=== PATIENT | male | born 2000 | race Caucasian/White ===

== ENCOUNTER 2022-03-09 20:17 | Inpatient (IN) | payer BC, SELFPAY ==
[2022-03-09] MEDS: cloNIDine HCL 0.1 MG TABLET PO (22:55)
[2022-03-09] MEDS: traZODone HCL 100 MG TABLET PO (22:56)
[2022-03-09] MEDS: hydrOXYzine HCL 50 MG TABLET PO (22:56)
[2022-03-09] MEDS: Acetaminophen 325 MG TABLET 650 MG PO (22:58)
[2022-03-10 00:08] VITALS: BMI 20.4
--- NOTE | 2022-03-10 00:10 | PC.ADMIT ---
A single, white, Wolof-speaking male aged 22 years was admitted to the [facility] at 2034 as a CV following referral from [facility] ED and [facility] crisis. Pt reports a number of IPLOC since age 16 years, but is unknown to staff on M5. Pt presented to [facility] ED via SPD and EMS on 03/06/22 following sending a text to his mother that he was going to hang himself. Police reported pt attempted to hang self in a tree with two belts and was suspended in the air. Police drove cruiser beneath, climbed on top of cruiser and supported pt until EMS arrived. Pt has stated I don't hear voices but the demons was torturing me and I had a meltdown and ran. I ran to a random house and in the back was a tree so I climbed up and tied two belts around my neck and jumped . Pt had also stated that people on the street told him to kill himself. Pt had come to [place] from [place] with a friend while the friend had an appointment. Pt denied AH/VH in [facility] assessment and in admission assessment. In [facility] assessment pt's mother said he knows not to say he is hearing voices also stating pt has a history of not being medication compliant. Pt had attended a program in [facility] and had stepped down to an IOP sober house although pt does not have an alcohol or substance abuse problem staff there have stated. Pt is welcome to return to his IOP placement. Pt denied to this promotion writer that he has schizoaffective d/o, bipolar type; pt stated he experiences panic and anxiety. Pt was focused on Klonopin upon arrival, saying it was prescribed to him. Pt stated that Xanax and ativan are also helpful. Pt stated that risperdal and zyprexa are not helpful meds; pt believes has ADR to zyprexa, but is a poor historian. Pt denies pain, reports anxiety 8/10 and depression 2/10. Pt stated he was glad he survived the attempted hanging. Pt denied current SI and stated he can come to staff for help if needed. Pt has a history of cutting left wrist as form of self harm, with last it occurring in June. Pt denied current urges to self harm. Pt denies alcohol or substance use. Pt was calm and cooperative during admission. Pt has no providers at this time. Pt denies medical issues. [id number] and treatment plan done and admission orders obtained. Pt placed on 15 minute safety checks and is resting in room at this time.
[2022-03-10 06:00] VITALS: BP 122/58; PULSE 88; RESP 14; O2SAT 97
[2022-03-10] MEDS: Omeprazole 20 MG CAPSULE.DR PO (06:51)
[2022-03-10] MEDS: Nicotine 21 MG PATCH.TD24 TRANSDERMA (08:40)
[2022-03-10] MEDS: Acetaminophen 325 MG TABLET 650 MG PO (08:41)
[2022-03-10] MEDS: cloNIDine HCL 0.1 MG TABLET PO (08:42)
[2022-03-10] MEDS: hydrOXYzine HCL 50 MG TABLET PO (08:42)
[2022-03-10 09:22] LABS: Cholesterol 161 mg/dL; HDL Cholesterol 44 mg/dL; LDL Cholesterol Calculated 108 mg/dl; Triglycerides 49 mg/dL
--- NOTE | 2022-03-10 10:30 | HO.PSYADMNOT ---
HPI Date of Service: 03/10/22 Chief Complaint: SI, suicide attempt Sources of Information: patient interviewed, chart reviewed and crisis/core team assessment reviewed HPI Subjective Notes: [place] Warning and Conditional Voluntary Narrative: Patient is a 22-year-old male with history of Schizoaffective disorder, past psychiatric hospitalizations, who presents after suicide attempt by hanging in the face of unmedicated psychotic disorder. Patient has had several psychiatric hospitalizations and 1 past suicide attempt however he does not think that he is psychotic and has not taken antipsychotic medications other than for a few weeks. Patient says that he came up from [place] to attend [facility] in [place].. However He denies any drug or alcohol abuse at all and says he came here for mental health reasons; he does say that he was prescribed clonazepam 1 mg b.i.d. for a year has not been on it for the past year and denies buying it or taking it since then; still he offers this as a possible reason he is at a recovery center. Patient said that he was doing really well at the program, going to groups and active. He said he was switched down to a [facility] since he was doing well. He said that all the sudden something was telling him to kill himself. He said he screamed out to the universe that he wants to kill himself and heard nothing back. Because of this he decided to kill himself. It is unclear the exact timeline but at some point he texted his mother and sisters that he was going to hang himself. Police found him with a noose around his neck under a tree and as police approached he released himself and was in fact hanging; police were able to quickly get him down (CTA done and negative). Patient at [facility] denies auditory hallucinations but as he talks more, it is clear that he has auditory hallucinations. He said at the recovery center he could hear staff saying she's fucking in different intonations. Patient expressed paranoid delusions that his family, friends, everyone he has known, and strangers are writing negative derogatory things about him on the Internet. He can not explain it but he knows the things he is reading are about him. He says that he thinks that there is this big joke that everyone is in on that he is a dad without kids... a burden and that people pity him. While talking with journalists and other writers, patient responded to an auditory hallucinations and acknowledged as much, saying he heard them say she's fucking; looking off to side he answered out loud, looking off to the side I know. . . I do not care. Patient says he feels talked in her asked. Patient is ambivalent about medications, he lists several antipsychotics that he is taking that he did not find helpful or had a negative reaction to which he qualifies as anxiety or tension. He is very focused on getting back clonazepam. He agrees however to start on Haldol. Patient denies any manic type history or symptoms. He endorses history of bouts of depression; denies trauma Currently denies SI Past Psychiatric History: Anxiety since adolescents Hospitalized at 17 for suicide attempt Hospitalized a few other times, and reports last hospitalization October 2021, but is not sure. Patient was [facility] for breaking into his sister's apartment Medication trials: Risperdal: 1 month; says it caused tension and anxiety Zyprexa: 2 weeks; says a caused tension and anxiety Abilify: 2 weeks; says it caused tension and anxiety [place]: For about a month. He says this seem to help stabilize him a little but overall was not that effective Cymbalta: About a year Zoloft: About a month Clonazepam 1 mg b.i.d. for a year or so. 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 [place]; intermittent psychiatric hospitalizations Patient has been homeless for some periods Patient came up to [facility] to go to [facility] though he denies any substance abuse at all Substance History: Denies any history of substance abuse Trauma History: Denies Diagnostics Vital Signs (24Hr): Vital Signs - 24 hr 03/10/22 06:00 Pulse Rate 88 Respiratory Rate 14 Blood Pressure 122/58 L Pulse Oximetry 88 L BMI result Body Mass Index 20.4 Labs Labs: Laboratory Results - last 48 hr 03/10/22 08:20 Triglycerides 49 Cholesterol 161 LDL Cholesterol, Calc 108 HDL Cholesterol 44 Meds/Allergies Meds Home Medications Acetaminophen (Acetaminophen 325 Mg Tablet) 650 mg PO Q6H PRN PRN Reason: Headache/Pain Mild Scale (1-3) Last Admin: 03/10/22 08:41 Dose: 650 mg Documented by: Al Hydroxide/Mg Hydroxide (Magnesium Hydrox/Alum Hydrox 30 Ml Oral.Susp) 30 ml PO Q6H PRN PRN Reason: Heartburn/Nausea Clonazepam (Clonazepam 0.5 Mg Tablet) 0.5 mg PO BID [facility] Clonidine HCl (Clonidine Hcl 0.1 Mg Tablet) 0.1 mg PO TID PRN; Protocol PRN Reason: anxiety, hyperarousal Last Admin: 03/10/22 08:42 Dose: 0.1 mg Documented by: Haloperidol (Haloperidol 5 Mg Tablet) 5 mg PO BID [facility] Hydroxyzine HCl (Hydroxyzine Hcl 50 Mg Tablet) 50 mg PO TID PRN PRN Reason: Anxiety Last Admin: 03/10/22 08:42 Dose: 50 mg Documented by: Ibuprofen (Ibuprofen 400 Mg Tablet) 400 mg PO Q6H PRN PRN Reason: mod pain Magnesium Hydroxide (Milk Of Magnesia 30 Ml Oral.Susp) 30 ml PO DAILY PRN PRN Reason: Constipation Nicotine (Nicotine 21 Mg Patch.Td24) 21 mg TRANSDERMA DAILY [facility] Last Admin: 03/10/22 08:40 Dose: 21 mg Documented by: Nicotine Polacrilex (Nicotine Polacrilex 2 Mg Gum) 2 mg BUCCAL Q2H PRN PRN Reason: Nicotine Cravings Omeprazole (Omeprazole 20 Mg Capsule.) 20 mg PO DAILY@0630 [facility] Last Admin: 03/10/22 06:51 Dose: 20 mg Documented by: Trazodone HCl (Trazodone Hcl 100 Mg Tablet) 100 mg PO BEDTIME [facility] Last Admin: 03/09/22 22:56 Dose: 100 mg Documented by: Allergies Allergies Allergy/AdvReac Type Severity Reaction Status Date / Time No Known Allergies Allergy Verified 03/10/22 14:38 Assessment & Plan Assessment & Plan (1) Schizoaffective disorder, depressive type: Status: Acute Code(s): F25.1 - Schizoaffective disorder, depressive type Plan Patient is a 22-year-old male with history of Schizoaffective disorder,, past psychiatric hospitalizations, who presents after suicide attempt by hanging in the face of unmedicated psychotic disorder. Patient has history of non adherence with medication other than clonazepam. Patient has insight to know that he is struggling with depressive feelings and anxiety, however does not have any insight in to his psychotic illness. That said he is willing to take Haldol provided he also gets clonazepam to which journalists and other writers agrees Will need collateral regarding substance abuse history Currently denies SI PLAN: CV Q 15 minute checks Haldol 5 mg b.i.d. (Titrate as needed) Clonazepam 0.5 mg b.i.d. Patient wants 1 mg b.i.d. however agrees to start here. While journalists and other writers understands that this is controlled substance, patient does have extreme anxiety provoked by psychotic illness. He also made a serious suicide attempt and needs his psychotic illness treated with medication and its journalists and other writers's opinion that the benefits here outweigh the risks. That said, journalists and other writers explained clearly to patient that clonazepam will not be prescribed as monotherapy and that patient needs medications from other categories, antipsychotic/mood stabilizers in order to treat his illness. Patient educated on: diagnosis and medication risk/benefits Informed Consent: understands Reason for continued inpatient stay Substantial Risk for: harm to self and rapid decompensation
--- NOTE | 2022-03-10 13:33 | HO.PM.IMCN ---
History of Present Illness Data of Consult Service Date: 03/10/22 Primary Care Provider: Unknown Physician HPI 22-year-old male with no significant past medical history who is presently admitted to inpatient psych unit for management of depression. He has no acute medical issues at the moment Review of Systems Review of Systems: Gen: no fever Resp: no sob, no cough CV: no chest, no CANCINO, no leg edema GI: No n/v, no abd pain Neuro: No confusion Psych no si Yes all other systems are reviewed and are negative [facility] Medical History (Updated 03/10/22 @ 13:44 by David Marte MD) Depression Social History Household Members: Other Household Members Other:: Pt in respite sober house with 5 others. Housing: House Do you presently have visiting nurse or other home services: No Patient Tobacco Use Status: Current everyday Tobacco user Tobacco use type: Smokeless Tobacco Smoked in Last 30 Days: Yes e-Cigarette/Vaping Use: Currently Using Frequency of e-Cigarette/Vaping Use: 12 times daily Patient Interested in Nicotine Replacement: Yes Patient Given Instructions on How to Stop Smoking: Yes Date Education Initiated: 03/09/22 Second Hand Smoke Exposure: No Use of substances other than those prescribed or required for medical reasons: No Currently Displaying Signs/Symptoms of Drug Intoxication Withdrawal: No Any prior treatment program specific to substance use: No Have you been hit, kicked, punched, or otherwise hurt by someone within the past year? If so, by whom?: No Do you feel safe in your current relationship?: No Current Relationship Is there a partner from a previous relationship who is making you feel unsafe now?: No Are you made to feel afraid or neglected: No Spiritual Healthcare Practices: None Druze Healthcare Practices: None Cultural Healthcare Practices: None Advance Directives: No Advance Directives Information Provided: No Advance Directives on File: No Do you have thoughts of harming others: None Do you have a plan to hurt others: No Plan Recently lost weight without trying: No Eating poorly because of decreased appetite: Yes Nutrition Risks: No Nutritional Risk Poor oral hygiene: Yes Meds Allergies Allergy/AdvReac Type Severity Reaction Status Date / Time risperidone [From Risperdal] AdvReac Unknown Unknown Verified 03/09/22 21:57 Active Medications: Current Medications Acetaminophen (Acetaminophen 325 Mg Tablet) 650 mg PO Q6H PRN PRN Reason: Headache/Pain Mild Scale (1-3) Last Admin: 03/10/22 08:41 Dose: 650 mg Documented by: Al Hydroxide/Mg Hydroxide (Magnesium Hydrox/Alum Hydrox 30 Ml Oral.Susp) 30 ml PO Q6H PRN PRN Reason: Heartburn/Nausea Clonidine HCl (Clonidine Hcl 0.1 Mg Tablet) 0.1 mg PO TID PRN; Protocol PRN Reason: anxiety, hyperarousal Last Admin: 03/10/22 08:42 Dose: 0.1 mg Documented by: Hydroxyzine HCl (Hydroxyzine Hcl 50 Mg Tablet) 50 mg PO TID PRN PRN Reason: Anxiety Last Admin: 03/10/22 08:42 Dose: 50 mg Documented by: Ibuprofen (Ibuprofen 400 Mg Tablet) 400 mg PO Q6H PRN PRN Reason: mod pain Magnesium Hydroxide (Milk Of Magnesia 30 Ml Oral.Susp) 30 ml PO DAILY PRN PRN Reason: Constipation Nicotine (Nicotine 21 Mg Patch.Td24) 21 mg TRANSDERMA DAILY [facility] Last Admin: 03/10/22 08:40 Dose: 21 mg Documented by: Nicotine Polacrilex (Nicotine Polacrilex 2 Mg Gum) 2 mg BUCCAL Q2H PRN PRN Reason: Nicotine Cravings Olanzapine (Olanzapine 5 Mg Tablet) 5 mg PO TID PRN PRN Reason: agitation, anxiety Omeprazole (Omeprazole 20 Mg Capsule.Dr) 20 mg PO DAILY@0630 [facility] Last Admin: 03/10/22 06:51 Dose: 20 mg Documented by: Trazodone HCl (Trazodone Hcl 100 Mg Tablet) 100 mg PO BEDTIME [facility] Last Admin: 03/09/22 22:56 Dose: 100 mg Documented by: Physical Exam Vital Signs and Narrative: Vital Signs: Last Vital Signs Pulse 88 03/10/22 06:00 Resp 14 03/10/22 06:00 BP 122/58 L 03/10/22 06:00 Pulse Ox 97 03/10/22 06:00 BMI result Body Mass Index 20.4 Const: Other: General: AO X 3, no acute distress Resp: CTA bilateral CVS: S1,S2,RRR GI: +BS, NT, no distention Skin: No rash Neuro: motor grossly intact, CN 2 to 12 intact Psych: appropriate affect Results Labs Labs: Laboratory Results - last 24 hr 03/10/22 08:20 Triglycerides 49 Cholesterol 161 LDL Cholesterol, Calc 108 HDL Cholesterol 44 Assessment and Plan (1) Depression: Status: Acute Plan 22/m male being managed for depression and anxiety with no acute medical issues at this time. Plan: continue present care, please call with any acute medical issues
[2022-03-10] MEDS: HaloperidoL 5 MG TABLET PO ×2 (14:57→20:45)
[2022-03-10] MEDS: clonazePAM 0.5 MG TABLET PO ×2 (14:58→20:45)
[2022-03-10 18:00] VITALS: BP 122/76; PULSE 98; RESP 16; TEMP 36.6; O2SAT 98
[2022-03-10] MEDS: traZODone HCL 100 MG TABLET PO (20:45)
[2022-03-11 06:00] VITALS: BP 118/64; PULSE 86; RESP 16; TEMP 36.7; O2SAT 98
[2022-03-11] MEDS: Omeprazole 20 MG CAPSULE.DR PO (06:14)
[2022-03-11] MEDS: HaloperidoL 5 MG TABLET PO ×2 (08:49→20:33)
[2022-03-11] MEDS: Nicotine 21 MG PATCH.TD24 TRANSDERMA (08:49)
[2022-03-11] MEDS: clonazePAM 0.5 MG TABLET PO (08:49)
--- NOTE | 2022-03-11 10:46 | HO.PSYCHPN ---
Subjective Subjective Date of Service: 03/11/22 Reason For Visit: SI, suicide attempt Subjective Notes: Conditional Voluntary Interim History: Pt reports passive suicidal ideation. He reports he wouldn't mind dying but denies any plan or intent to hurt himself. He appears internally preoccupied. He reports feeling anxious, asks if clonazepam can be increased. He is on haldol as well. Per nursing, pt visible in the unit, social with select peers. No behavioral concerns. Medication Compliance: Yes Side effects from medications: No Attending Groups: Intermittent Review of Systems Review of Systems Gen: no fever Resp: no sob, no cough CV: no chest, no CANCINO, no leg edema GI: No n/v, no abd pain Neuro: No confusion Psych no si Yes all other systems are reviewed and are negative Mental Status Exam Mental Status Exam Narrative: Appearance: thin casually groomed, fair hygiene in NAD Behavior:poor eye contact, cooperative psychomotor:no agitation or retardation noted Speech: clear, normal rate/rhythm/volume, spontaneous- monotone Thought process:mostly linear Thought content:guarded, internally preoccupied but not fully forthcoming. Mood: depressed, anxious Affect: constricted SI:passive HI:none VH/AH:internally preoccupied. Delusions:persecutory delusions Insight/judgment:impaired x 2. Memory/cog: alert, oriented x 3. Diagnostics Vital Signs (24Hr): Vital Signs - 24 hr 03/12/22 14:54 03/12/22 19:10 03/13/22 06:00 Temperature 98.7 F 98.0 F Pulse Rate 91 77 96 Respiratory Rate 18 16 Blood Pressure 129/79 120/66 126/74 Pulse Oximetry 98 98 BMI result Body Mass Index 20.4 Medications Medications Current Medications Acetaminophen (Acetaminophen 325 Mg Tablet) 650 mg PO Q6H PRN PRN Reason: Headache/Pain Mild Scale (1-3) Last Admin: 03/12/22 21:03 Dose: 650 mg Documented by: Al Hydroxide/Mg Hydroxide (Magnesium Hydrox/Alum Hydrox 30 Ml Oral.Susp) 30 ml PO Q6H PRN PRN Reason: Heartburn/Nausea Clonazepam (Clonazepam 1 Mg Tablet) 1 mg PO BID [facility] Last Admin: 03/13/22 08:24 Dose: 1 mg Documented by: Clonidine HCl (Clonidine Hcl 0.1 Mg Tablet) 0.1 mg PO TID PRN; Protocol PRN Reason: anxiety, hyperarousal Last Admin: 03/12/22 14:56 Dose: 0.1 mg Documented by: Haloperidol (Haloperidol 5 Mg Tablet) 5 mg PO BID [facility] Last Admin: 03/13/22 08:24 Dose: 5 mg Documented by: Hydroxyzine HCl (Hydroxyzine Hcl 50 Mg Tablet) 50 mg PO TID PRN PRN Reason: Anxiety Last Admin: 03/12/22 14:57 Dose: 50 mg Documented by: Ibuprofen (Ibuprofen 400 Mg Tablet) 400 mg PO Q6H PRN PRN Reason: mod pain Magnesium Hydroxide (Milk Of Magnesia 30 Ml Oral.Susp) 30 ml PO DAILY PRN PRN Reason: Constipation Nicotine (Nicotine 21 Mg Patch.Td24) 21 mg TRANSDERMA DAILY [facility] Last Admin: 03/13/22 08:24 Dose: 21 mg Documented by: Nicotine Polacrilex (Nicotine Polacrilex 2 Mg Gum) 4 mg BUCCAL Q2H PRN PRN Reason: Nicotine Cravings Last Admin: 03/12/22 21:06 Dose: 4 mg Documented by: Omeprazole (Omeprazole 20 Mg Capsule.Dr) 20 mg PO DAILY@0630 [facility] Last Admin: 03/13/22 06:28 Dose: 20 mg Documented by: Trazodone HCl (Trazodone Hcl 100 Mg Tablet) 100 mg PO BEDTIME [facility] Last Admin: 03/12/22 20:49 Dose: 100 mg Documented by: Allergies Allergies Allergy/AdvReac Type Severity Reaction Status Date / Time No Known Allergies Allergy Verified 03/10/22 14:38 Assessment & Plan Assessment & Plan (1) Schizoaffective disorder, depressive type: Status: Acute Code(s): F25.1 - Schizoaffective disorder, depressive type Plan Patient is a 22-year-old male with history of Schizoaffective disorder,, past psychiatric hospitalizations, who presents after suicide attempt by hanging in the face of unmedicated psychotic disorder. Patient has history of non adherence with medication other than clonazepam. Patient has insight to know that he is struggling with depressive feelings and anxiety, however does not have any insight in to his psychotic illness. That said he is willing to take Haldol provided he also gets clonazepam to which investment underwriter agrees Will need collateral regarding substance abuse history Currently denies SI PLAN: CV Q 15 minute checks Haldol 5 mg b.i.d. (Titrate as needed) Clonazepam 0.5 mg b.i.d. Patient wants 1 mg b.i.d. however agrees to start here. While investment underwriter understands that this is controlled substance, patient does have extreme anxiety provoked by psychotic illness. He also made a serious suicide attempt and needs his psychotic illness treated with medication and its investment underwriter's opinion that the benefits here outweigh the risks. That said, investment underwriter explained clearly to patient that clonazepam will not be prescribed as monotherapy and that patient needs medications from other categories, antipsychotic/mood stabilizers in order to treat his illness. 03/11 increase clonazepam to 1mg po BID, continue haldol. I spent minutes with the patient and/or on the patient floor today, greater than?50% of which was spent counseling/coordinating care. Reason for contiued inpatient stay Substantial Risk for: harm to self and inability to function
[2022-03-11] MEDS: cloNIDine HCL 0.1 MG TABLET PO ×2 (12:24→20:36)
[2022-03-11] MEDS: hydrOXYzine HCL 50 MG TABLET PO (12:24)
[2022-03-11 20:26] VITALS: BP 129/80; PULSE 82; RESP 16; TEMP 36.9; O2SAT 99
[2022-03-11] MEDS: Nicotine Polacrilex 2 MG GUM BUCCAL (20:32)
[2022-03-11] MEDS: clonazePAM 1 MG TABLET PO (20:33)
[2022-03-11] MEDS: traZODone HCL 100 MG TABLET PO (20:33)
[2022-03-12 06:00] VITALS: BP 121/66; PULSE 92; RESP 16; TEMP 36.6; O2SAT 97
[2022-03-12] MEDS: Omeprazole 20 MG CAPSULE.DR PO (06:04)
[2022-03-12] MEDS: Nicotine 21 MG PATCH.TD24 TRANSDERMA (08:42)
[2022-03-12] MEDS: clonazePAM 1 MG TABLET PO ×2 (08:42→20:49)
[2022-03-12] MEDS: HaloperidoL 5 MG TABLET PO ×2 (08:42→20:49)
[2022-03-12] MEDS: cloNIDine HCL 0.1 MG TABLET PO ×2 (09:24→14:56)
[2022-03-12] MEDS: hydrOXYzine HCL 50 MG TABLET PO ×2 (09:24→14:57)
--- NOTE | 2022-03-12 12:30 | P.PNPSI_ITS ---
Subjective Subjective Date of Service: 03/12/22 Reason For Visit: SI, suicide attempt Subjective Notes: Conditional Voluntary Interim History: Pt continues to report passive suicidal ideation. He reports he wouldn't mind dying but denies any plan or intent to hurt himself. He appears internally preoccupied. He reports feeling less anxious, with higher dose of clonazepam. He is taking meds as prescribed. Per nursing, pt visible in the unit, social with select peers. No behavioral concerns. Medication Compliance: Yes Side effects from medications: No Review of Systems Review of Systems Gen: no fever Resp: no sob, no cough CV: no chest, no CANCINO, no leg edema GI: No n/v, no abd pain Neuro: No confusion Psych no si Yes all other systems are reviewed and are negative Mental Status Exam Mental Status Exam Narrative: Appearance: thin casually groomed, fair hygiene in NAD Behavior:poor eye contact, cooperative psychomotor:no agitation or retardation noted Speech: clear, normal rate/rhythm/volume, spontaneous- monotone Thought process:mostly linear Thought content:guarded, internally preoccupied but not fully forthcoming. Mood: depressed, anxious Affect: constricted SI:passive HI:none VH/AH:internally preoccupied. Delusions:persecutory delusions Insight/judgment:impaired x 2. Memory/cog: alert, oriented x 3. Diagnostics Vital Signs (24Hr): Vital Signs - 24 hr 03/12/22 14:54 03/12/22 19:10 03/13/22 06:00 Temperature 98.7 F 98.0 F Pulse Rate 91 77 96 Respiratory Rate 18 16 Blood Pressure 129/79 120/66 126/74 Pulse Oximetry 98 98 BMI result Body Mass Index 20.4 Medications Medications Current Medications Acetaminophen (Acetaminophen 325 Mg Tablet) 650 mg PO Q6H PRN PRN Reason: Headache/Pain Mild Scale (1-3) Last Admin: 03/12/22 21:03 Dose: 650 mg Documented by: Al Hydroxide/Mg Hydroxide (Magnesium Hydrox/Alum Hydrox 30 Ml Oral.Susp) 30 ml PO Q6H PRN PRN Reason: Heartburn/Nausea Clonazepam (Clonazepam 1 Mg Tablet) 1 mg PO BID TIA Last Admin: 03/13/22 08:24 Dose: 1 mg Documented by: Clonidine HCl (Clonidine Hcl 0.1 Mg Tablet) 0.1 mg PO TID PRN; Protocol PRN Reason: anxiety, hyperarousal Last Admin: 03/12/22 14:56 Dose: 0.1 mg Documented by: Haloperidol (Haloperidol 5 Mg Tablet) 5 mg PO BID [facility] Last Admin: 03/13/22 08:24 Dose: 5 mg Documented by: Hydroxyzine HCl (Hydroxyzine Hcl 50 Mg Tablet) 50 mg PO TID PRN PRN Reason: Anxiety Last Admin: 03/12/22 14:57 Dose: 50 mg Documented by: Ibuprofen (Ibuprofen 400 Mg Tablet) 400 mg PO Q6H PRN PRN Reason: mod pain Magnesium Hydroxide (Milk Of Magnesia 30 Ml Oral.Susp) 30 ml PO DAILY PRN PRN Reason: Constipation Nicotine (Nicotine 21 Mg Patch.Td24) 21 mg TRANSDERMA DAILY [facility] Last Admin: 03/13/22 08:24 Dose: 21 mg Documented by: Nicotine Polacrilex (Nicotine Polacrilex 2 Mg Gum) 4 mg BUCCAL Q2H PRN PRN Reason: Nicotine Cravings Last Admin: 03/12/22 21:06 Dose: 4 mg Documented by: Omeprazole (Omeprazole 20 Mg Capsule.Dr) 20 mg PO DAILY@0630 [facility] Last Admin: 03/13/22 06:28 Dose: 20 mg Documented by: Trazodone HCl (Trazodone Hcl 100 Mg Tablet) 100 mg PO BEDTIME [facility] Last Admin: 03/12/22 20:49 Dose: 100 mg Documented by: Allergies Allergies Allergy/AdvReac Type Severity Reaction Status Date / Time No Known Allergies Allergy Verified 03/10/22 14:38 Assessment & Plan Assessment & Plan (1) Schizoaffective disorder, depressive type: Status: Acute Code(s): F25.1 - Schizoaffective disorder, depressive type Plan Patient is a 22-year-old male with history of Schizoaffective disorder,, past psychiatric hospitalizations, who presents after suicide attempt by hanging in the face of unmedicated psychotic disorder. Patient has history of non adherence with medication other than clonazepam. Patient has insight to know that he is struggling with depressive feelings and anxiety, however does not have any insight in to his psychotic illness. That said he is willing to take Haldol provided he also gets clonazepam to which telegraphic typewriter mechanic agrees Will need collateral regarding substance abuse history Currently denies SI PLAN: CV Q 15 minute checks Haldol 5 mg b.i.d. (Titrate as needed) Clonazepam 0.5 mg b.i.d. Patient wants 1 mg b.i.d. however agrees to start here. While telegraphic typewriter mechanic understands that this is controlled substance, patient does have extreme anxiety provoked by psychotic illness. He also made a serious suicide attempt and needs his psychotic illness treated with medication and its telegraphic typewriter mechanic's opinion that the benefits here outweigh the risks. That said, telegraphic typewriter mechanic explained clearly to patient that clonazepam will not be prescribed as monotherapy and that patient needs medications from other categories, antipsychotic/mood stabilizers in order to treat his illness. 03/11 increase clonazepam to 1mg po BID, continue haldol. 03/12 continue current meds. I spent ___25___ minutes with the patient and/or on the patient floor today, greater than?50% of which was spent counseling/coordinating care. Reason for contiued inpatient stay Substantial Risk for: harm to self and inability to function
[2022-03-12 14:54] VITALS: BP 129/79; PULSE 91; RESP 18; O2SAT 98
[2022-03-12 19:10] VITALS: BP 120/66; PULSE 77; TEMP 37.1
[2022-03-12] MEDS: traZODone HCL 100 MG TABLET PO (20:49)
[2022-03-12] MEDS: Acetaminophen 325 MG TABLET 650 MG PO (21:03)
[2022-03-12] MEDS: Nicotine Polacrilex 2 MG GUM 4 MG BUCCAL (21:06)
[2022-03-13 06:00] VITALS: BP 126/74; PULSE 96; RESP 16; TEMP 36.7; O2SAT 98
[2022-03-13] MEDS: Omeprazole 20 MG CAPSULE.DR PO (06:28)
[2022-03-13] MEDS: HaloperidoL 5 MG TABLET PO (08:24)
[2022-03-13] MEDS: Nicotine 21 MG PATCH.TD24 TRANSDERMA (08:24)
[2022-03-13] MEDS: clonazePAM 1 MG TABLET PO (08:24)
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
[2022-03-13] MEDS: chlorproMAZINE HCl 25 MG TABLET PO ×2 (12:25→16:28)
[2022-03-13] MEDS: Cyclobenzaprine HCl 10 MG TABLET PO ×2 (14:18→20:22)
[2022-03-13] MEDS: ALPRAZolam 0.5 MG TABLET PO ×2 (14:18→20:21)
[2022-03-13] MEDS: hydrOXYzine HCL 50 MG TABLET PO (16:28)
[2022-03-13 19:55] VITALS: BP 136/64; PULSE 101; TEMP 36.8
[2022-03-13] MEDS: traZODone HCL 100 MG TABLET PO (20:20)
[2022-03-13] MEDS: HaloperidoL 5 MG TABLET 10 MG PO (20:20)
[2022-03-13] MEDS: Acetaminophen 325 MG TABLET 650 MG PO (20:21)
[2022-03-13] MEDS: cloNIDine HCL 0.1 MG TABLET PO (20:23)
[2022-03-13] MEDS: Nicotine Polacrilex 2 MG GUM 4 MG BUCCAL (20:27)
[2022-03-14 06:00] VITALS: BP 108/59; PULSE 76; RESP 14; TEMP 36.6; O2SAT 97
[2022-03-14] MEDS: Omeprazole 20 MG CAPSULE.DR PO (06:44)
[2022-03-14] MEDS: Nicotine 21 MG PATCH.TD24 TRANSDERMA (07:56)
[2022-03-14] MEDS: HaloperidoL 5 MG TABLET 10 MG PO ×2 (07:56→20:12)
[2022-03-14] MEDS: ALPRAZolam 0.5 MG TABLET PO ×2 (09:42→20:12)
[2022-03-14] MEDS: chlorproMAZINE HCl 25 MG TABLET PO (09:44)
--- NOTE | 2022-03-14 10:42 | P.PNPSI_ITS ---
Subjective Subjective Date of Service: 03/14/22 Reason For Visit: SI, suicide attempt Interim History: Patient reports that he no longer has any suicidality and says that he has no plans or intention of harming himself. At 1st patient says that the suicide attempt was because he was being bullied, harassed, heckled... Both by on-line social media of people and also by voices. Patient then retracted that and said he does not hear any voices and that it was just from social media. On further inquiry, patient later said that the suicide attempt was prompted by being rejected by a girl he was interested in. He says he knows he has been stalked, and said that they have a Drone following him around... and explains that they refers to the family of the girlfriend who broke up with him. Later, he said that suicidality was prompted because he was at a sober house and does not have an addiction which he found depressing. He said at that time I just wanted to .. . I did not want to be here anymore. . . He repeats that those feelings are over and that he'll never try to take his life again. He says I do not want to ... I do not want hurt myself. Patient asks for discharge and says he wants his Xanax dose increased. He says this is the only medication that he needs. Although yesterday he said that the Thorazine was helpful, today he said it was making him too sedated any did not want anymore. He says I do not have schizophrenia... I do not have schizoaffective disorder... I Just have anxiety and that benzodiazepines are the only medication he needs. Clinical Dietician attempted to discuss that while patient does have anxiety, he also seems to be struggling with other things as well that require other medications; technical report writer also probed to see if patient could tolerate the idea that perhaps his mind was playing tricks on him. Patient remains adamant that his experiences are real. Patient remains fixated on being prescribed benzodiazepines as the primary treatment and that on these medications he did fine. He like being at [facility] however says if they will not allow him to have benzodiazepines there, he does not want to return and will just go to a homeless care home and then look for a job. Clinical Dietician talked about the potential risks of this plan which patient agreed with but said that he has been through worse. He did however agree that would be michele to call his mother 1st and see if he could return home to [place], [place] He also said there is a program there that he would very much like to get into [facility] where he is allowed to have treatment with benzodiazepine. Patient did say he would be willing to continue with the Haldol if he was also prescribed a benzodiazepine on discharge. Mental Status Exam Mental Status Exam Narrative: Pt is alert and oriented; behavior is cooperative and calm; patient is not in distress; dressed in casual attire with adequate hygiene; mood is described as well and affect blunted; eye contact appropriate; Speech is normal rate but quiet volume; psychomotor retardation present with slow movements; thought process is goal directed; Thought content is on dealing with anxiety and dealing being paranoid thoughts about persecuted/stalked; otherwise pertinent to relevant topics; denies any SI/HI. AH present.? Patients insight and judgment are impaired. Diagnostics Vital Signs (24Hr): Vital Signs - 24 hr 03/13/22 19:55 03/14/22 06:00 Temperature 98.3 F 97.9 F Pulse Rate 101 H 76 Respiratory Rate 14 Blood Pressure 136/64 108/59 L Pulse Oximetry 97 BMI result Body Mass Index 20.4 Medications Medications Current Medications Acetaminophen (Acetaminophen 325 Mg Tablet) 650 mg PO Q6H PRN PRN Reason: Headache/Pain Mild Scale (1-3) Last Admin: 03/13/22 20:21 Dose: 650 mg Documented by: Al Hydroxide/Mg Hydroxide (Magnesium Hydrox/Alum Hydrox 30 Ml Oral.Susp) 30 ml PO Q6H PRN PRN Reason: Heartburn/Nausea Alprazolam (Alprazolam 0.5 Mg Tablet) 0.5 mg PO BID PRN PRN Reason: mod to severe anxiety Last Admin: 03/14/22 09:42 Dose: 0.5 mg Documented by: Chlorpromazine HCl (Chlorpromazine Hcl 25 Mg Tablet) 25 mg PO QID PRN PRN Reason: mod to severe anxiety Last Admin: 03/14/22 09:44 Dose: 25 mg Documented by: Clonidine HCl (Clonidine Hcl 0.1 Mg Tablet) 0.1 mg PO TID PRN; Protocol PRN Reason: anxiety, hyperarousal Last Admin: 03/12/22 14:56 Dose: 0.1 mg Documented by: Clonidine HCl (Clonidine Hcl 0.1 Mg Tablet) 0.1 mg PO BEDTIME [facility]; Protocol Last Admin: 03/13/22 20:23 Dose: 0.1 mg Documented by: Cyclobenzaprine HCl (Cyclobenzaprine Hcl 10 Mg Tablet) 10 mg PO TID PRN PRN Reason: muscle pain Last Admin: 03/13/22 20:22 Dose: 10 mg Documented by: Haloperidol (Haloperidol 5 Mg Tablet) 10 mg PO BID [facility] Last Admin: 03/14/22 07:56 Dose: 10 mg Documented by: Hydroxyzine HCl (Hydroxyzine Hcl 50 Mg Tablet) 50 mg PO TID PRN PRN Reason: Anxiety Last Admin: 03/13/22 16:28 Dose: 50 mg Documented by: Ibuprofen (Ibuprofen 600 Mg Tablet) 600 mg PO Q6H PRN PRN Reason: mod pain Magnesium Hydroxide (Milk Of Magnesia 30 Ml Oral.Susp) 30 ml PO DAILY PRN PRN Reason: Constipation Nicotine (Nicotine 21 Mg Patch.Td24) 21 mg TRANSDERMA DAILY [facility] Last Admin: 03/14/22 07:56 Dose: 21 mg Documented by: Nicotine Polacrilex (Nicotine Polacrilex 2 Mg Gum) 4 mg BUCCAL Q2H PRN PRN Reason: Nicotine Cravings Last Admin: 03/13/22 20:27 Dose: 4 mg Documented by: Omeprazole (Omeprazole 20 Mg Capsule.Dr) 20 mg PO DAILY@0630 [facility] Last Admin: 03/14/22 06:44 Dose: 20 mg Documented by: Trazodone HCl (Trazodone Hcl 100 Mg Tablet) 100 mg PO BEDTIME [facility] Last Admin: 03/13/22 20:20 Dose: 100 mg Documented by: Allergies Allergies Allergy/AdvReac Type Severity Reaction Status Date / Time No Known Allergies Allergy Verified 03/10/22 14:38 Assessment & Plan Assessment & Plan (1) Schizoaffective disorder, depressive type: Status: Acute Code(s): F25.1 - Schizoaffective disorder, depressive type Plan Patient is a 22-year-old male with history of Schizoaffective disorder,, past psychiatric hospitalizations, who presents after suicide attempt by hanging in the face of unmedicated psychotic disorder. Patient has history of non adherence with medication other than clonazepam. Patient has insight to know that he is struggling with depressive feelings and anxiety, however does not have any insight in to his psychotic illness. That said he is willing to take Haldol provided he also gets clonazepam to which technical report writer agrees Will need collateral regarding substance abuse history Currently denies SI 5/ Patient continues to have paranoid delusions and auditory hallucinations. He has very limited insight and thinks his anxiety is unrelated to any psychotic illness. He does not understand disorganized nature of first reporting that he does not hear voices but then seconds later explaining that he does. He agrees to increased Haldol as well as Thorazine as a p.r.n.. Patient very much wanted to switch from clonazepam which was raised over the weekend to another benzo and asked about Xanax because he feels clonazepam is not working well. He cannot accept that the source of his Anxiety is largely due to psychosis; he says his sister was on Xanax and really would like to try it. Clinical Dietician consents With the idea that once his psychotic symptoms are better treated his anxiety will be much less. He has been off clonazepam for over year. Collateral gathered and patient does not have a history of substance abuse / patient continues to deny any SI and says that he is doing better and is no longer at any risk for self-harm. Patient wants discharge and has a 3 day notice signed. Patient's main focus is on benzodiazepines, now specifically Xanax as his treatment and does not have insight that he has a psychotic disorder and denies having auditory hallucinations, unaware that he has also at times endorsed them. Patient is ambivalent about what he will do on discharge, saying he rather go to a homeless care home than be without benzos however is open to returning home to his mother's in [facility]. Clinical Dietician agrees that there is a place for benzos when treating a psychotic disorder however this cannot take the place of antipsychotic medication. That said he is willing to remain on Haldol. Off all medications, including benzos patient has had periods of time where he was overall stable in the community. [facility] at [facility] [phone] PLAN: 3 day notice Q 15 minute checks continue Haldol 10 mg b.i.d. For continued psychosis Lowered Thorazine 12.5 mg q.i.d. p.r.n. for anxiety (lowered since said 25mg too sedating) technical report writer agrees to Start Xanax 0.5 mg b.i.d. p.r.n. for anxiety; patient thinks clonazepam is not working and wants to try another benzo; technical report writer is willing to entertain this idea since he is also willing to increase his Haldol and take Thorazine as a p.r.n. for anxiety DC Clonazepam 1 mg b.i.d: Patient says it is not working. Regarding Benzos: while technical report writer understands that this is controlled substance, patient does have extreme anxiety provoked by psychotic illness. He also made a serious suicide attempt and needs his psychotic illness treated with medication and its technical report writer's opinion that the benefits here outweigh the risks. That said, technical report writer explained clearly to patient that clonazepam will not be prescribed as monotherapy and that patient needs medications from other categories, antipsychotic/mood stabilizers in order to treat his illness. I spent minutes with the patient and/or on the patient floor today, greater than?50% of which was spent counseling/coordinating care. Patient educated on: diagnosis and medication risk/benefits Informed Consent: further education needed Reason for contiued inpatient stay Substantial Risk for: med/psych decompensation
[2022-03-14] MEDS: cloNIDine HCL 0.1 MG TABLET PO ×3 (12:24→20:12)
[2022-03-14] MEDS: Cyclobenzaprine HCl 10 MG TABLET PO ×2 (12:24→16:59)
[2022-03-14 12:25] VITALS: BP 140/84; PULSE 113
[2022-03-14 16:50] VITALS: BP 132/84; PULSE 106; TEMP 36.6; O2SAT 97
[2022-03-14] MEDS: hydrOXYzine HCL 50 MG TABLET PO (16:59)
[2022-03-14] MEDS: Acetaminophen 325 MG TABLET 650 MG PO (17:00)
[2022-03-14] MEDS: traZODone HCL 100 MG TABLET PO (20:12)
[2022-03-15 06:00] VITALS: BP 116/59; PULSE 61; RESP 17; TEMP 36.1; O2SAT 99
[2022-03-15] MEDS: Omeprazole 20 MG CAPSULE.DR PO (06:50)
[2022-03-15] MEDS: Nicotine 21 MG PATCH.TD24 TRANSDERMA (08:52)
[2022-03-15] MEDS: HaloperidoL 5 MG TABLET 10 MG PO ×2 (08:52→20:38)
[2022-03-15] MEDS: ALPRAZolam 0.5 MG TABLET PO ×2 (08:55→14:02)
[2022-03-15] MEDS: cloNIDine HCL 0.1 MG TABLET PO ×3 (10:09→20:40)
[2022-03-15] MEDS: hydrOXYzine HCL 50 MG TABLET PO ×2 (10:09→17:30)
--- NOTE | 2022-03-15 15:01 | P.PNPSI_ITS ---
Subjective Subjective Date of Service: 03/15/22 Reason For Visit: SI, suicide attempt Interim History: Patient reports that he is ?better ?referring to not feeling sedated since he has not been taking Thorazine. Patient denies any SI or HI. He also denies auditory hallucinations. He said he feels like his anxiety is better and is less tension in his back. Patient said he is not feeling bullied that he is over it and over the self-hate thing... He also says that he is not thinking about or concerned about being stalked. Patient was very glad to hear that [facility] may be willing to allow him to remain on a benzodiazepine and still return to their program; if they will allow him to remain on benzos he definitely wants to return there, saying he liked the staff and the program and felt comfortable there. He also understands that a condition of being on a benzodiazepine will be that he needs to continue with antipsychotic medication to which he agrees. Patient says he will remain on Haldol and denies any medication side effects. He declines to get on long-acting Haldol Decanoate saying that it is still possible he could get a medication side effect so he will stick with the pill form. Patient agrees to switch from Xanax to Valium. He denies any other complaints and has no requests. Said he talked to his mom that they had a good conversation. Mental Status Exam Mental Status Exam Narrative: Pt is alert and oriented; behavior is cooperative and calm; patient is not in distress; dressed in casual attire with adequate hygiene; mood is described as better and affect blunted; eye contact appropriate; Speech is normal rate but remains quiet volume; some psychomotor retardation present; thought process is goal directed and linear; Thought content is on dealing with anxiety and discharge; he denies paranoid thoughts about being persecuted/stalked saying he's over it; content is pertinent to relevant topics; denies any SI/HI. Denies AH.? Patients insight and judgment are impaired but improved and adequate. Diagnostics Vital Signs (24Hr): Vital Signs - 24 hr 03/14/22 16:50 03/15/22 06:00 Temperature 97.8 F 96.9 F Pulse Rate 106 H 61 Respiratory Rate 17 Blood Pressure 132/84 116/59 L Pulse Oximetry 97 99 BMI result Body Mass Index 20.4 Medications Medications Current Medications Acetaminophen (Acetaminophen 325 Mg Tablet) 650 mg PO Q6H PRN PRN Reason: Headache/Pain Mild Scale (1-3) Last Admin: 03/14/22 17:00 Dose: 650 mg Documented by: Al Hydroxide/Mg Hydroxide (Magnesium Hydrox/Alum Hydrox 30 Ml Oral.Susp) 30 ml PO Q6H PRN PRN Reason: Heartburn/Nausea Alprazolam (Alprazolam 0.5 Mg Tablet) 0.5 mg PO BID PRN PRN Reason: mod to severe anxiety Last Admin: 03/15/22 14:02 Dose: 0.5 mg Documented by: Chlorpromazine HCl (Chlorpromazine Hcl 25 Mg Tablet) 12.5 mg PO QID PRN PRN Reason: mod to severe anxiety Clonidine HCl (Clonidine Hcl 0.1 Mg Tablet) 0.1 mg PO TID PRN; Protocol PRN Reason: anxiety, hyperarousal Last Admin: 03/15/22 10:09 Dose: 0.1 mg Documented by: Clonidine HCl (Clonidine Hcl 0.1 Mg Tablet) 0.1 mg PO BEDTIME [facility]; Protocol Last Admin: 03/14/22 20:12 Dose: 0.1 mg Documented by: Cyclobenzaprine HCl (Cyclobenzaprine Hcl 10 Mg Tablet) 10 mg PO TID PRN PRN Reason: muscle pain Last Admin: 03/14/22 16:59 Dose: 10 mg Documented by: Haloperidol (Haloperidol 5 Mg Tablet) 10 mg PO BID [facility] Last Admin: 03/15/22 08:52 Dose: 10 mg Documented by: Hydroxyzine HCl (Hydroxyzine Hcl 50 Mg Tablet) 50 mg PO TID PRN PRN Reason: Anxiety Last Admin: 03/15/22 10:09 Dose: 50 mg Documented by: Ibuprofen (Ibuprofen 600 Mg Tablet) 600 mg PO Q6H PRN PRN Reason: mod pain Magnesium Hydroxide (Milk Of Magnesia 30 Ml Oral.Susp) 30 ml PO DAILY PRN PRN Reason: Constipation Nicotine (Nicotine 21 Mg Patch.Td24) 21 mg TRANSDERMA DAILY [facility] Last Admin: 03/15/22 08:52 Dose: 21 mg Documented by: Nicotine Polacrilex (Nicotine Polacrilex 2 Mg Gum) 4 mg BUCCAL Q2H PRN PRN Reason: Nicotine Cravings Last Admin: 03/13/22 20:27 Dose: 4 mg Documented by: Omeprazole (Omeprazole 20 Mg Lauro.) 20 mg PO DAILY@0630 [facility] Last Admin: 03/15/22 06:50 Dose: 20 mg Documented by: Trazodone HCl (Trazodone Hcl 100 Mg Tablet) 100 mg PO BEDTIME [facility] Last Admin: 03/14/22 20:12 Dose: 100 mg Documented by: Allergies Allergies Allergy/AdvReac Type Severity Reaction Status Date / Time No Known Allergies Allergy Verified 03/10/22 14:38 Assessment & Plan Assessment & Plan (1) Schizoaffective disorder, depressive type: Status: Acute Code(s): F25.1 - Schizoaffective disorder, depressive type Plan Patient is a 22-year-old male with history of Schizoaffective disorder,, past psychiatric hospitalizations, who presents after suicide attempt by hanging in the face of unmedicated psychotic disorder. Patient has history of non adherence with medication other than clonazepam. Patient has insight to know that he is struggling with depressive feelings and anxiety, however does not have any insight in to his psychotic illness. That said he is willing to take Haldol provided he also gets clonazepam to which functional tester typewriters agrees Will need collateral regarding substance abuse history Currently denies SI 5/2 Patient continues to have paranoid delusions and auditory hallucinations. He has very limited insight and thinks his anxiety is unrelated to any psychotic illness. He does not understand disorganized nature of first reporting that he does not hear voices but then seconds later explaining that he does. He agrees to increased Haldol as well as Thorazine as a p.r.n.. Patient very much wanted to switch from clonazepam which was raised over the weekend to another benzo and asked about Xanax because he feels clonazepam is not working well. He cannot accept that the source of his Anxiety is largely due to psychosis; he says his sister was on Xanax and really would like to try it. Clerical And Office Support Workers consents With the idea that once his psychotic symptoms are better treated his anxiety will be much less. He has been off clonazepam for over year. Collateral gathered and patient does not have a history of substance abuse 5/3 patient continues to deny any SI and says that he is doing better and is no longer at any risk for self-harm. Patient wants discharge and has a 3 day notice signed. Patient's main focus is on benzodiazepines, now specifically Xanax as his treatment and does not have insight that he has a psychotic diso rder and denies having auditory hallucinations, unaware that he has also at times endorsed them. Patient is ambivalent about what he will do on discharge, saying he rather go to a homeless usp than be without benzos however is open to returning home to his mother's in [facility]. Clerical And Office Support Workers agrees that there is a place for benzos when treating a psychotic disorder however this cannot take the place of antipsychotic medication. That said he is willing to remain on Haldol. Off all medications, including benzos patient has had periods of time where he was overall stable in the community. 03/15 patient denies any SI or HI or AVH. He says that he is not concerned about being bullied or stalked anymore. He agrees to switch to Valium and says and axis not that helpful after all. He also agrees to continue on Haldol. Patient very much wants to return to [facility] and was happy to know that they will take him back and allow him to continue on benzodiazepine with Haldol. -at this point, patient is stable, denies any SI and is able to return to a supportive and safe environment. Patient remains continues to lack insight into his psychotic disorder and is mildly guarded about his symptoms; however he is now organized in his speech and thought content; his thought process is linear and he says he is no longer worried or thinking about concerns that have bothered him that are clearly persecutory delusions. He also no longer makes any references to what has been auditory hallucinations. It seems that Haldol has been at least partially helpful and has been stabilizing. Talked with Belen at [facility] [phone]. She says patient has been there for about 2 months and has been engaged in treatment and overall doing well, getting along with staff and peers. She said that this suicide attempt was sudden and impulsive and that he has not expressed any SI at all prior to this event. She and her team have him diagnosed with schizoaffective disorder and say he has resisted thus far being on an antipsychotic. She says that it was most likely his delusional persecutory thought that he is being bullied which triggered his attempt. Belen says they welcome him to return to their facility and also by given his diagnosis will allow him to remain on benzodiazepines as long as he is treating his psychotic illness with an antipsychotic medication. She corroborates that he does not have a history of substance use disorder. PLAN: retracted 3 day notice Q 15 minute checks continue Haldol 10 mg b.i.d. For continued psychosis START Valium 2mg BID prn Lowered Thorazine 12.5 mg q.i.d. p.r.n. for anxiety (lowered since said 25mg too sedating) DC Xanax 0.5 mg b.i.d. p.r.n. for anxiety; patient thinks clonazepam is not working and wants to try another benzo; functional tester typewriters is willing to entertain this idea since he is also willing to increase his Haldol and take DC Clonazepam 1 mg b.i.d: Patient says it is not working. Regarding Benzos: while functional tester typewriters understands that this is controlled substance, patient does have extreme anxiety provoked by psychotic illness. He also made a serious suicide attempt and needs his psychotic illness treated with medication and its functional tester typewriters's opinion that the benefits here outweigh the risks. That said, functional tester typewriters explained clearly to patient that clonazepam will not be prescribed as monotherapy and that patient needs medications from other categories, antipsychotic/mood stabilizers in order to treat his illness. I spent minutes with the patient and/or on the patient floor today, gr eater than?50% of which was spent counseling/coordinating care. Reason for contiued inpatient stay Substantial Risk for: stable for discharge
[2022-03-15 17:25] VITALS: BP 103/60; PULSE 114; TEMP 36.6
[2022-03-15] MEDS: Cyclobenzaprine HCl 10 MG TABLET PO (17:30)
[2022-03-15] MEDS: Ibuprofen 600 MG TABLET PO (17:31)
[2022-03-15] MEDS: traZODone HCL 100 MG TABLET PO (20:39)
[2022-03-15 20:40] VITALS: BP 124/61; PULSE 78
[2022-03-16] MEDS: traZODone HCL 100 MG TABLET PO ×2 (03:17→20:56)
[2022-03-16] MEDS: diazePAM 2 MG TABLET PO ×2 (03:17→09:32)
[2022-03-16] MEDS: Omeprazole 20 MG CAPSULE.DR PO (06:15)
[2022-03-16 09:10] VITALS: BP 143/77; PULSE 71; TEMP 36.7
[2022-03-16] MEDS: Nicotine 21 MG PATCH.TD24 TRANSDERMA (09:30)
[2022-03-16] MEDS: HaloperidoL 5 MG TABLET 10 MG PO ×2 (09:31→20:56)
--- NOTE | 2022-03-16 12:18 | P.PNPSI_ITS ---
Subjective Subjective Date of Service: 03/16/22 Reason For Visit: SI, suicide attempt Interim History: Patient reports that he is doing well and continues to deny that he has any concerns about being stalked or bullied. Patient shared he had some ambivalence about going to [facility], saying he was thinking about going to his aunt's house so he can get medical marijuana which he says will help with the tension in his body. Patient seems to differentiate the tension from anxiety with this new report of muscle tightness which he says is in his latissimus [place] and reminds him of muscle tightness that he got from Risperdal. Manager Of Software explained that this is possibly due to a medication side effect (or simply tension from anxiety) and Patient agrees to trying Cogentin. Patient says that the Valium seems to be okay but wants to go back on clonazepam which he says overall has been the most helpful. Manager Of Software agrees. Patient discussed his options with social work specialist and account underwriter and agreed that at this time it is best to go back to [facility] and see how things go. He agrees that he really liked being there and like the staff and that it is possible the muscle tension will resolve on its own or with the Cogentin. He understands that from there he can always make other plans and at this point his aunt has not offered to take him in with her and let him live there. Mental Status Exam Mental Status Exam Narrative: Pt is alert and oriented; behavior is cooperative and calm; patient is not in distress; dressed in casual attire with adequate hygiene; mood is described as good and affect blunted; eye contact appropriate; Speech is normal rate but remains quiet volume; some psychomotor retardation present; thought process is goal directed and linear; Thought content is on dealing with anxiety and discharge and muscle tension; he denies paranoid thoughts about being persecuted/stalked saying he does not even think about it; thought content is pertinent to relevant topics; denies any SI/HI. Denies AH.? Patients insight and judgment are impaired but improved and adequate Diagnostics Vital Signs (24Hr): Vital Signs - 24 hr 03/15/22 17:25 03/15/22 20:40 Temperature 97.8 F Pulse Rate 114 H 78 Blood Pressure 103/60 124/61 BMI result Body Mass Index 20.4 Medications Medications Current Medications Acetaminophen (Acetaminophen 325 Mg Tablet) 650 mg PO Q6H PRN PRN Reason: Headache/Pain Mild Scale (1-3) Last Admin: 03/14/22 17:00 Dose: 650 mg Documented by: Al Hydroxide/Mg Hydroxide (Magnesium Hydrox/Alum Hydrox 30 Ml Oral.Susp) 30 ml PO Q6H PRN PRN Reason: Heartburn/Nausea Benztropine Mesylate (Benztropine Mesylate 0.5 Mg Tablet) 0.5 mg PO BID [facility] Clonazepam (Clonazepam 1 Mg Tablet) 1 mg PO BID PRN PRN Reason: Anxiety Clonidine HCl (Clonidine Hcl 0.1 Mg Tablet) 0.1 mg PO TID PRN; Protocol PRN Reason: anxiety, hyperarousal Last Admin: 03/15/22 17:32 Dose: 0.1 mg Documented by: Clonidine HCl (Clonidine Hcl 0.1 Mg Tablet) 0.1 mg PO BEDTIME [facility]; Protocol Last Admin: 03/15/22 20:40 Dose: 0.1 mg Documented by: Cyclobenzaprine HCl (Cyclobenzaprine Hcl 10 Mg Tablet) 10 mg PO TID PRN PRN Reason: muscle pain Last Admin: 03/15/22 17:30 Dose: 10 mg Documented by: Haloperidol (Haloperidol 5 Mg Tablet) 10 mg PO BID [facility] Last Admin: 03/16/22 09:31 Dose: 10 mg Documented by: Hydroxyzine HCl (Hydroxyzine Hcl 50 Mg Tablet) 50 mg PO TID PRN PRN Reason: Anxiety Last Admin: 03/15/22 17:30 Dose: 50 mg Documented by: Ibuprofen (Ibuprofen 600 Mg Tablet) 600 mg PO Q6H PRN PRN Reason: mod pain Last Admin: 03/15/22 17:31 Dose: 600 mg Documented by: Magnesium Hydroxide (Milk Of Magnesia 30 Ml Oral.Susp) 30 ml PO DAILY PRN PRN Reason: Constipation Nicotine (Nicotine 21 Mg Patch.Td24) 21 mg TRANSDERMA DAILY [facility] Last Admin: 03/16/22 09:30 Dose: 21 mg Documented by: Nicotine Polacrilex (Nicotine Polacrilex 2 Mg Gum) 4 mg BUCCAL Q2H PRN PRN Reason: Nicotine Cravings Last Admin: 03/13/22 20:27 Dose: 4 mg Documented by: Omeprazole (Omeprazole 20 Mg Capsule.Dr) 20 mg PO DAILY@0630 [facility] Last Admin: 03/16/22 06:15 Dose: 20 mg Documented by: Trazodone HCl (Trazodone Hcl 100 Mg Tablet) 100 mg PO BEDTIME [facility] Last Admin: 03/16/22 03:17 Dose: 100 mg Documented by: Allergies Allergies Allergy/AdvReac Type Severity Reaction Status Date / Time No Known Allergies Allergy Verified 03/10/22 14:38 Assessment & Plan Assessment & Plan (1) Schizoaffective disorder, depressive type: Status: Acute Code(s): F25.1 - Schizoaffective disorder, depressive type Plan Patient is a 22-year-old male with history of Schizoaffective disorder,, past psychiatric hospitalizations, who presents after suicide attempt by hanging in the face of unmedicated psychotic disorder. Patient has history of non adherence with medication other than clonazepam. Patient has insight to know that he is struggling with depressive feelings and anxiety, however does not have any insight in to his psychotic illness. That said he is willing to take Haldol provided he also gets clonazepam to which account underwriter agrees Will need collateral regarding substance abuse history Currently denies SI 03/13 Patient continues to have paranoid delusions and auditory hallucinations. He has very limited insight and thinks his anxiety is unrelated to any psychotic illness. He does not understand disorganized nature of first reporting that he does not hear voices but then seconds later explaining that he does. He agrees to increased Haldol as well as Thorazine as a p.r.n.. Patient very much wanted to switch from clonazepam which was raised over the weekend to another benzo and asked about Xanax because he feels clonazepam is not working well. He cannot accept that the source of his Anxiety is largely due to psychosis; he says his sister was on Xanax and really would like to try it. Manager Of Software consents With the idea that once his psychotic symptoms are better treated his anxiety will be much less. He has been off clonazepam for over year. Collateral gathered and patient does not have a history of substance abuse 03/14 patient continues to deny any SI and says that he is doing better and is no longer at any risk for self-harm. Patient wants discharge and has a 3 day notice signed. Patient's main focus is on benzodiazepines, now specifically Xanax as his treatment and does not have insight that he has a psychotic disorder and denies having auditory hallucinations, unaware that he has also at times endorsed them. Patient is ambivalent about what he will do on discharge, saying he rather go to a homeless residential than be without benzos however is open to returning home to his mother's in [facility]. Manager Of Software agrees that there is a place for benzos when treating a psychotic disorder however this cannot take the place of antipsychotic medication. That said he is willing to remain on Haldol. Off all medications, including benzos patient has had periods of time where he was overall stable in the community. 03/15 patient denies any SI or HI or AVH. He says that he is not concerned about being bullied or stalked anymore. He agrees to switch to Valium and says and axis not that helpful after all. He also agrees to continue on Haldol. Patient very much wants to return to [facility] and was happy to know that they will take him back and allow him to continue on benzodiazepine with Haldol. -at this point, patient is stable, denies any SI and is able to return to a supportive and safe environment. Patient remains continues to lack insight into his psychotic disorder and is mildly guarded about his symptoms; however he is now organized in his speech and thought content; his thought process is linear and he says he is no longer worried or thinking about concerns that have bothered him that are clearly persecutory delusions. He also no longer makes any references to what has been auditory hallucinations. It seems that Haldol has been at least partially helpful and has been stabilizing. 03/16 patient remains stable; he denies any delusional thoughts and does not seem to be concerned by. May have some mild dystonia and agrees to Cogentin. Prefers clonazepam to Valium. Patient remains without any SI and agrees to return to [facility] as it is a supportive environment. While patient remains without insight and remains at risk for at some point going off antipsychotics, decompensating and possibly becoming unsafe, he has remained stable on the unit, in good behavioral and impulse control and without any SI. He is not in imminent risk for harm to self or others and does not rise to the level of involuntary commitment. Patient's request for discharge is honored. Collateral: Talked with Belen at [facility] [phone]. She says patient has been there for about 2 months and has been engaged in treatment and overall doing well, getting along with staff and peers. She said that this suicide attempt was sudden and impulsive and that he has not expressed any SI at all prior to this event. She and her team have him diagnosed with schizoaffective disorder and say he has resisted thus far being on an antipsychotic. She says that it was most likely his delusional persecutory thought that he is being bullied which triggered his attempt. Belen says they welcome him to return to their facility and also by given his diagnosis will allow him to remain on benzodiazepines as long as he is treating his psychotic illness with an antipsychotic medication. She corroborates that he does not have a history of substance use disorder. PLAN: CV Q 15 minute checks continue Haldol 10 mg b.i.d. For continued psychosis START Cogentin 0.5mg BID for what sounds like possible medication related muscle stiffness. Restart Clonazepam 1mg BID DC Thorazine; does not want DC Valium (prefers Clonzepam) DC Xanax 0.5 mg b.i.d. p.r.n. for anxiety; patient thinks clonazepam is not working and wants to try another benzo; account underwriter is willing to entertain this idea since he is also willing to increase his Haldol and take Regarding Benzos: while account underwriter understands that this is controlled substance, patient does have extreme anxiety provoked by psychotic illness. Also he does not have a hx of substance abuse. He made a serious suicide attempt and needs his psychotic illness treated with medication and its account underwriter's opinion that the benefits here outweigh the risks. That said, account underwriter explained clearly to patient that clonazepam will not be prescribed as monotherapy and that patient needs medications from other categories, antipsychotic/mood stabilizers in order to treat his illness. I spent minutes with the patient and/or on the patient floor today, greater than?50% of which was spent counseling/coordinating care. Patient educated on: medication risk/benefits Informed Consent: understands Reason for contiued inpatient stay Substantial Risk for: stable for discharge
[2022-03-16] MEDS: cloNIDine HCL 0.1 MG TABLET PO ×2 (12:23→20:55)
[2022-03-16] MEDS: Benztropine Mesylate 0.5 MG TABLET PO ×2 (13:20→20:56)
[2022-03-16] MEDS: Cyclobenzaprine HCl 10 MG TABLET PO ×2 (14:52→21:01)
[2022-03-16] MEDS: clonazePAM 1 MG TABLET PO ×2 (14:53→20:58)
--- NOTE | 2022-03-16 15:08 | P.DS_ITS ---
DS: Providers Provider Date of Service: 03/17/22 Date of admission: 03/09/22 20:17 Date of discharge: 03/17/22 Primary care physician: Unknown Physician Attending physician on admission: Eduardo Pearson Consults: 03/09/22 21:52 Consult to Hospitalist Routine Consulting Provider: Hospitalist Reason For Exam: new admit from [facility] [place] Attending physician on discharge: Eduardo Pearson DS: Diagnosis Discharge Diagnosis (1) Schizoaffective disorder, depressive type: Status: Acute DS: Medications Discharge Medications Home Medications: Previous Rx's Medication Instructions Recorded benztropine 0.5 mg tablet 0.5 mg PO BID 30 Days #60 tab 03/16/22 clonazepam 1 mg tablet 1 mg PO BID PRN 30 Days #60 tab 03/16/22 clonidine HCl 0.1 mg tablet See Rx Instructions .ROUTE 03/16/22 .COMPLEX PRN 30 Days #120 tab cyclobenzaprine 10 mg tablet 10 mg PO TID PRN 30 Days #90 tab 03/16/22 haloperidol 10 mg tablet 10 mg PO BID 30 Days #60 tab 03/16/22 hydroxyzine HCl 50 mg tablet 50 mg PO TID PRN 30 Days #90 tab 03/16/22 nicotine 21 mg/24 hr daily 21 mg TRANSDERMAL DAILY PRN 28 03/16/22 transdermal patch Days #28 ea omeprazole 20 mg capsule,delayed 20 mg PO DAILY@0630 30 Days #30 cap 03/16/22 release trazodone 100 mg tablet 100 mg PO BEDTIME 30 Days #30 tab 03/16/22 Mental Status Exam Mental Status Exam Narrative: Pt is alert and oriented; behavior is cooperative and calm; patient is not in distress; dressed in casual attire with adequate hygiene; mood is described as good and affect blunted; eye contact appropriate; Speech is normal rate but remains quiet volume; some psychomotor retardation present; thought process is goal directed and linear; Thought content is on dealing with anxiety and discharge and muscle tension; he denies paranoid thoughts about being persecuted/stalked saying he does not even think about it; thought content is pertinent to relevant topics; denies any SI/HI. Denies AH.? Patients insight and judgment are impaired but improved and adequate Data Data Completed and Pending Completed studies during hospitalization [Text1]: 03/10/22 08:20 Triglycerides 49 Cholesterol 161 LDL Cholesterol, Calc 108 HDL Cholesterol 44 DS: Summary Hospital Course Hospital Course: HPI abreviated Patient is a 22-year-old male with history of Schizoaffective disorder,, past psychiatric hospitalizations, who presents after suicide attempt by hanging in the face of unmedicated psychotic disorder.? Patient has history of non adherence with medication other than clonazepam.? Patient has insight to know that he is struggling with depressive feelings and anxiety, however does not have any insight in to his psychotic illness.? He has a flat affect and negative symptoms with emotional restriction and somewhat monotone voice. Patient denies SI which he says is fully resolved HOSPITAL COURSE: On admission, Patient with paranoid delusions and auditory hallucinations.? He has very limited insight and thinks his anxiety is unrelated to any psychotic illness.? He does not understand disorganized nature of first reporting that he does not hear voices but then seconds later explaining that he does (at one point pt even said wait...let me see if i can hear it.... ? Patient is adamant that benzodiazepines are the only treatment that he needs. 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 Pt continued with delusional thoughts and AH and agreed to increase Haldol as well as add Thorazine as a p.r.n..? Patient very much wanted to switch from clonazepam which was raised over the weekend to another benzo and asked about Xanax because he feels clonazepam is not working well.? He cannot accept that the source of his Anxiety is largely due to psychosis; he says his sister was on Xanax and really would like to try it.? Staff Electronic Warfare Officer consents With the idea that once his psychotic symptoms are better treated his anxiety will be much less.? He has been off clonazepam for over year. Collateral gathered and patient does not have a history of substance abuse 5/3 patient continues to deny any SI and says that he is doing better and is no longer at any risk for self-harm.? Patient wants discharge and has a 3 day notice signed.? Patient's main focus is on benzodiazepines as his main treatment. He remains w/out insight that he has a psychotic disorder and denies having auditory hallucinations, unaware that he has also at times endorsed them.? Patient is ambivalent about what he will do on discharge, saying he rather go to a homeless half-way than be without benzos however is open to re turning home to his mother's in [facility]. Staff Electronic Warfare Officer agrees that there is a place for benzos when treating a psychotic disorder however this cannot take the place of antipsychotic medication. That said he is willing to remain on Haldol.? Pt has a hx of relative stability even when off all medications, including benzos, where he's remained overall stable in the community. / He continues to denies any SI or HI or AVH.? He says that he is not concerned about being bullied or stalked anymore and though he continues to lack insight, seems on Haldol, his delusional concerns significantly diminished.? Pt is back and forth on which benzo is most helpful and after trial of Valium, wants to go back to Clonazepam while agreeing to continue on Haldol.? Patient very much wants to return to [facility] and was happy to know that they will take him back and allow him to continue on benzodiazepine with Haldol. -On Haldol 10mg BID (and clonazepam 1mg bid), pt remained stable, without SI and with delusional thinking significantly reduced. Patient continues to lack insight into his psychotic disorder and is mildly guarded about his symptoms; his negative symptoms also remained and he continues to have a flat affect and little inflection in speech. However he is now relatively well organized in his speech and thought content; his thought process is linear and he maintains that he is no longer worried or thinking about concerns that have bothered him that were clearly persecutory delusions.? He also no longer makes any references to what has been auditory hallucinations.? It seems that Haldol has been at least partially helpful and stabilizing. Patient did complain of some muscle stiffness in his back and he May have some mild dystonia (he says something similar happened when on Risperdal) and agrees to I and love and youprieto. Patient wants to go back to [facility] which is a supportive and safe environment.?While patient remains without insight and remains at risk for at some point going off antipsychotics, decompensating and possibly becoming unsafe, he has remained stable on the unit, in good behavioral and impulse control and without any SI.? He is not in imminent risk for harm to self or others and does not rise to the level of involuntary commitment.? Patient's request for discharge is honored. Time spent discussing smoking cessation with patient: 3 to 10 minutes Status at Discharge Functional status at discharge: independent ambulation Overall status at discharge: patient is progressing back to baseline Time Spent with Patient Time attestation: Total time spent providing and/or coordinating discharge services: Time spent: Less than 30 minutes Discharge Plan Discharge Patient Disposition: Xfer Other Discharge Diagnosis: Schizoaffective disorder, depressed type Referrals: Residential Placement: [facility] [Other] - 1 Week Physician,Unknown J [Primary Care Provider] - 1 Week Discharge Medications: New cyclobenzaprine 10 mg Tablet 10 mg PO TID PRN (Reason: muscle pain) 30 Days Qty: 90 0RF nicotine 21 mg/24 hr Patch 24 Hour 21 mg transdermal DAILY PRN (Reason: nicotine cravings) 28 Days Qty: 28 0RF Rx Instructions: remove at bedtime clonidine HCl 0.1 mg Tablet See Rx Instructions mg .ROUTE .COMPLEX PRN (Reason: mild anxiety and at bedtime) 30 Days Qty: 120 0RF Protocol: Hold for SBP< HOLD for SBP < : 90 Rx Instructions: take 1 tab at bedtime; may also take 1 tab every 4 hours for mild anxiety as needed. benztropine 0.5 mg Tablet 0.5 mg PO BID 30 Days Qty: 60 0RF clonazepam 1 mg Tablet 1 mg PO BID PRN (Reason: moderate to severe Anxiety) 30 Days Qty: 60 0RF haloperidol 10 mg tablet 10 mg PO BID 30 Days Qty: 60 0RF trazodone 100 mg Tablet 100 mg PO BEDTIME 30 Days Qty: 30 0RF omeprazole 20 mg Capsule,Delayed Release(Dr/Ec) 20 mg PO DAILY@0630 30 Days Qty: 30 0RF hydroxyzine HCl 50 mg Tablet 50 mg PO TID PRN (Reason: mild Anxiety) 30 Days Qty: 90 0RF Discharge Orders: Discharge Order (Routine); Ordered 03/17/22 Ordered By: Eduardo Pearson Diet: regular diet Activity on Discharge: As tolerated Stand Alone Forms: Patient Portal Discharge page Care Plan Goals: Maintain mood and safe behaviors Take medications as prescribed Practice coping skills Continue with outpatient providers and reach out to them as needed Health Concerns: Mood stability and behaviors Plan of Treatment: Follow up with your psychiatric provider and other outpatient providers regarding above concerns Take medications as prescribed Assessment: Risk assessment at time of discharge:? Patient was interviewed prior to discharge and found to be fully oriented and without any SI or HI. Patient has insight and demonstrates good judgment in terms of wanting to pursue treatment. Patient is not in imminent risk of harm to self or others and has a safety plan that includes presenting to the closest ER or calling 911 if feeling unsafe.? Patient has been observed closely by nursing and unit staff throughout admission; patient has not engaged in any behaviors that suggest dangerousness to self or others and has demonstrated appropriate behaviors and impulse control
[2022-03-17] MEDS: Omeprazole 20 MG CAPSULE.DR PO (07:02)
[2022-03-17] MEDS: HaloperidoL 5 MG TABLET 10 MG PO (09:02)
[2022-03-17] MEDS: Benztropine Mesylate 0.5 MG TABLET PO (09:02)
[2022-03-17] MEDS: Nicotine 21 MG PATCH.TD24 TRANSDERMA (09:03)
[2022-03-17] MEDS: clonazePAM 1 MG TABLET PO (09:03)
[2022-03-17 09:29] VITALS: BP 107/66; PULSE 93; RESP 18; TEMP 36.7; O2SAT 98
== END 2022-03-17 10:55 | disposition other institution (70) | DRG 750 ==
PROVIDERS: Registered Nurse; Admitting Provider Psychiatry & Neurology Psychiatry; Visit Provider Psychiatry & Neurology Psychiatry
DX: F25.1 Schizoaffective disorder, depressive type (principal); R45.851 Suicidal ideations; F17.210 Nicotine dependence, cigarettes, uncomplicated; Z91.51 Personal history of suicidal behavior; Z71.6 Tobacco abuse counseling; Z79.899 Other long term (current) drug therapy
CPT/HCPCS: 36415; 80061